=== PATIENT | male | born 1940 | race Caucasian/White ===

== ENCOUNTER 2020-12-03 09:23 | Inpatient (IN) | payer MEDICARE, OTHER ==
[~2020-12-03] VITALS: Ht 177.8 cm; Wt 102.2 kg
--- OUTSIDE RECORDS SUMMARY | 2020-12-03 09:30 | XMS REPORT | Clinical Summary ---
Author Author [facility] Organization [facility] Address Unknown Phone Unavailable Care Team Providers Care Rail Doweling Machine Operator Name Role Phone Dipika Fuentes HUMAN RESOURCES BENEFITS MANAGER PCP Source Comments Some departments are not documenting in the electronic medical record. If you d o not see the information that you expected, contact Release of Information in [facility] [email or web address] Information Management department at [phone] for further assistan ce in locating additional records.[facility] Allergies Comments Active Allergy Reactions Severity Noted Date Bismuth Subsalicylate HIVES, RASH High 08/15/19 13 Medications End Date Status Medication Sig Dispensed Refills Start Date Active metFORMIN (GLUCOPHAGE) Take 1,000 mg 0 02 1,000 mg tablet by mouth 1 twice daily. Active glimepiride (AMARYL) 4 mg Take 4 mg by 0 06/18 tablet mouth twice 1 daily. 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 Encounters Care Team Description Date Type Specialty Jason Larios MD Melanoma in situ of ear, left (HCC) (Lizzie viviana Dx) 09/03/2020 Office Visit Plastic Surgery 09/03/2020 Travel from Last 3 Months Surgical History Surgery Date Site/Laterality Comments ABDOMEN SURGERY OSTOMY TISSUE TRANSFER 08/19/2020 Left ADJACENT TISSU E TRANSFER PEDICLE FLAP DEFECT 10 SQ CM OR LESS - EYELID/ EAR/ NOSE/ LIP per formed by Jason Larios MD at [facility] OR MALIGNANT SKIN LESION 08/19/2020 Left EXCISION LESION MALIGNANT 2.1 CM - 3.0 CM - FACE/ EXCISION EAR performed by Kati Larios MD at [facility] OR Medical History Medical History Date Comments DM (diabetes mellitus) (HCC) Hypertension Social History Date Tobacco Use Types Packs/Day Years Used Never Smoker Smokeless Tobacco: Former User Sex Assigned at Date Recorded Not on file Last Filed Vital Signs Reading Time Taken Comments Vital Sign 140/76 09/03/2020 10:26 AM CDT Blood Pressure 79 09/03/2020 10:26 AM CDT Pulse 36.4 C (97.6 F) 08/19/2020 11:28 AM CDT Temperature - - Respiratory Rate 97% 08/19/2020 11:28 AM CDT Oxygen Saturation - - Inhaled Oxygen Concentration 95.3 kg (210 lb) 09/03/2020 10:26 AM CDT Weight 177.8 cm (5' 10") 09/03/2020 10:26 AM CDT Height 30.13 09/03/2020 10:26 AM CDT Body Mass Index Plan of Treatment Health Maintenance Due Date Last Done Comments MEDICARE ANNUAL WELLNESS 1940 VISIT DTAP/TDAP VACCINES (1 - 10/13/1959 Tdap) HEPATITIS C SCREENING 10/13/1959 PHYSICAL (COMPREHENSIVE) 10/13/1959 EXAM SHINGLES RECOMBINANT 10/13/1991 VACCINE (1 of 2) PNEUMONIA (PPSV23) 2006 VACCINE (1 of 1 - PPSV23) INFLUENZA VACCINE 12/17/2020 Results Not on filefrom Last 3 Months Insurance Type Payer Benefit Subscriber ID Effective Phone Address Plan / Dates Group Medicare AETNA MEDICARE AETNA [id number] 2019-P MEDICARE resent PPO [phone] Advance Directives Patient Translation Director Explanation Type Date Recorded Advance Directive/DPOA
[2020-12-03 10:02] LABS: WHITE BLOOD COUNT 3.1 10^3/uL (4.3-11.0)
[2020-12-03 10:03] LABS: BASOPHILS % (AUTO) 0 % (0-10); EOSINOPHILS % (AUTO) 0 % (0-10); HEMATOCRIT 37 % (40-54); HEMOGLOBIN 12.5 g/dL (13.3-17.7); LYMPHOCYTES # (AUTO) 0.5 X 10^3 (1.0-4.0); LYMPHOCYTES % (AUTO) 18 % (12-44); MEAN CORPUSCULAR HEMOGLOBIN 29 pg (25-34); MEAN CORPUSCULAR HGB CONC 35 g/dL (32-36); MEAN CORPUSCULAR VOLUME 86 fL (80-99); MEAN PLATELET VOLUME 10.6 fL (9.0-12.2); MONOCYTES # (AUTO) 0.1 X 10^3 (0.0-1.0); MONOCYTES % (AUTO) 4 % (0-12); NEUTROPHILS # (AUTO) 2.4 X 10^3 (1.8-7.8); NEUTROPHILS % (AUTO) 78 % (42-75); PLATELET COUNT 107 10^3/uL (130-400)
[2020-12-03] MEDS ORDERED: NS IV 1000 ML 1,000 ML IV STA (10:05)
[2020-12-03] MEDS ORDERED: ONDANSETRON 4 MG/2 ML (SDV) Z0FRAN IVP STA (10:05)
--- NOTE | 2020-12-03 10:21 | ED General ---
General Chief Complaint: COVID19 Suspect/Confirmed Stated Complaint: AMS; COVID+; LOW O2 Source of Information: Patient (CHUY GUERRERO MD) History of Present Illness Date Seen by Provider: Dec 03, 2020 Time Seen by Provider: 09:26 Initial Comments 80-year-old male presenting to the ED with altered mental status and confusion. He had a low oxygen saturation in the 70s. He reports having been sick for several days with cough and cold symptoms but then yesterday he had a Covid test that came back positive. His has had some similar symptoms at home as well. He has had some intermittent fever and chills. He has had nausea and decreased appetite but no vomiting. He has had some diarrhea 1-2 loose stools a day. He denies any pain with urination. This morning he was getting dizzy and lightheaded with standing and changing positions. He is diabetic and takes oral pills as well as recently started on Levemir. He follows with Lizet Fuentes from [place]. He has been more fatigued and sleeping more since yesterday. He has been coughing but usually not bringing up anything. He has some chest wall pain from cough. His son told the nursing staff that he has been sick for about a week. Associated Systoms: Chest Pain (chest wall pain from coughing), Cough; No Diaphoresis; Fever/Chills (intermittent), Headaches, Loss of Appetite, Malaise, Nausea/Vomiting (nausea but no vomiting); No Rash, No Seizure; Shortness of Air; No Syncope; Weakness (general) (CHUY GUERRERO MD) Allergies and Home Medications Allergies Coded Allergies: bismuth subsalicylate (Verified Allergy, Unknown, Hives, 12/03/20) Patient Home Medication List Home Medication List Reviewed: Yes (CHUY GUERRERO MD) Review of Systems Review of Systems Constitutional: see HPI EENTM: nose congestion Respiratory: see HPI; No hemoptysis, No stridor, No wheezing Cardiovascular: see HPI Gastrointestinal: see HPI; No abdominal pain; diarrhea (1-2 loose stools a day), loss of appetite, nausea; No vomiting Genitourinary: decreased output; No dysuria Musculoskeletal: other (generalized body aches) Skin: no symptoms reported Psychiatric/Neurological: See HPI, Headache, Weakness (general) (CHUY GUERRERO MD) Past Vskkhcf-Bztpgy-Earvuq Hx Past Medical History Surgery/Hospitalization HX: Diabetes Surgeries: Yes Ear Surgery (melanoma removal) Respiratory: No Cardiac: No Neurological: No Genitourinary: No Gastrointestinal: No Musculoskeletal: No Diabetes, Insulin dep Cancer: Yes Melanoma Psychosocial: No (CHUY GUERRERO MD) Physical Exam Vital Signs Vital Signs - First Documented 12/03/20 09:30 Temp 37.5 Pulse 54 Resp 35 B/P (MAP) 124/63 (83) Pulse Ox 93 O2 Delivery OxyMask O2 Flow Rate 15.00 (PHILIPPE CASTILLO MD) Vital Signs Capillary Refill : (CHUY GUERRERO MD) Height, Weight, BMI Height: '" Weight: lbs. oz. kg; BMI Method: General Appearance: Mild Distress, Other (initially more confused and having difficulty answering questions, but improved as he was on supplemental oxygen.) HEENT: PERRL/EOMI; No Moist Mucous Membranes (slightly dry mucous membranes) Neck: Full Range of Motion, Normal Inspection, Non Tender, Supple Respiratory: No Accessory Muscle Use, Decreased Breath Sounds, Respiratory Distress (increased work of breathing and tachypnea), Rhonci (throughout, improved with cough), Other (tender to chest wall) Cardiovascular: Regular Rate, Rhythm, Normal Peripheral Pulses Gastrointestinal: Normal Bowel Sounds, No Pulsatile Mass, Non Tender, Soft Rectal: Deferred Back: No CVA Tenderness, No Vertebral Tenderness Extremity: Normal Capillary Refill, Normal Inspection, No Pedal Edema Neurologic/Psychiatric: Alert, Oriented x3 (initially confused on arrival but after being on supplemental oxygen answered questions appropriately), No Motor/Sensory Deficits, clerk typist II-XII Norm as Tested Skin: Normal Color, Warm/Dry (CHUY GUERRERO MD) Focused Exam Lactate Level 12/03/20 09:45: Lactic Acid Level 1.42 (PHILIPPE CASTILLO MD) Lactic Acid Level Laboratory Tests Test 12/03/20 09:45 Lactic Acid Level 1.42 MMOL/L (0.50-2.00) (PHILIPPE CASTILLO MD) Progress/Results/Core Measures Suspected Sepsis SIRS Temperature: Pulse: Respiratory Rate: Laboratory Tests 12/03/20 09:45: White Blood Count 3.1L Blood Pressure / Mean: 12/03/20 09:45: Lactic Acid Level 1.42 Laboratory Tests 12/03/20 09:45: Creatinine 0.99, INR Comment 1.0, Platelet Count 107L, Total Bilirubin 0.8 (CHUY GUERRERO MD) Results/Orders Lab Results Laboratory Tests Test 12/03/20 09:45 12/03/20 10:15 12/03/20 12:35 Range/Units White Blood Count 3.1 L 4.3-11.0 10^3/uL Red Blood Count 4.26 L 4.30-5.52 10^6/uL Hemoglobin 12.5 L 13.3-17.7 g/dL Hematocrit 37 L 40-54 % Mean Corpuscular Volume 86 80-99 fL Mean Corpuscular Hemoglobin 29 25-34 pg Mean Corpuscular Hemoglobin Concent 35 32-36 g/dL Red Cell Distribution Width 14.6 H 10.0-14.5 % Platelet Count 107 L 130-400 10^3/uL Mean Platelet Volume 10.6 9.0-12.2 fL Immature Granulocyte % (Auto) 1 % Neutrophils (%) (Auto) 78 H 42-75 % Lymphocytes (%) (Auto) 18 12-44 % Monocytes (%) (Auto) 4 0-12 % Eosinophils (%) (Auto) 0 0-10 % Basophils (%) (Auto) 0 0-10 % Neutrophils # (Auto) 2.4 1.8-7.8 X 10^3 Lymphocytes # (Auto) 0.5 L 1.0-4.0 X 10^3 Monocytes # (Auto) 0.1 0.0-1.0 X 10^3 Eosinophils # (Auto) 0.0 0.0-0.3 10^3/uL Basophils # (Auto) 0.0 0.0-0.1 10^3/uL Immature Granulocyte # (Auto) 0.0 0.0-0.1 10^3/uL Neutrophils % (Manual) 69 % Lymphocytes % (Manual) 12 % Monocytes % (Manual) 3 % Eosinophils % (Manual) 0 % Basophils % (Manual) 0 % Metamyelocytes % 1 % Myelocytes % 1 % Band Neutrophils 14 % Percent Immature Platelet Fraction 4.2 0.0-7.6 % Prothrombin Time 13.2 12.2-14.7 SEC INR Comment 1.0 0.8-1.4 Activated Partial Thromboplast Time 34 24-35 SEC D-Dimer 1.25 H 0.00-0.49 UG/ML Sodium Level 130 L 135-145 MMOL/L Potassium Level 4.2 3.6-5.0 MMOL/L Chloride Level 97 L 98-107 MMOL/L Carbon Dioxide Level 23 21-32 MMOL/L Anion Gap 10 5-14 MMOL/L Blood Urea Nitrogen 20 H 7-18 MG/DL Creatinine 0.99 0.60-1.30 MG/DL Estimat Glomerular Filtration Rate 73 BUN/Creatinine Ratio 20 Glucose Level 174 H 70-105 MG/DL Lactic Acid Level 1.42 0.50-2.00 MMOL/L Calcium Level 8.4 L 8.5-10.1 MG/DL Corrected Calcium 8.7 8.5-10.1 MG/DL Total Bilirubin 0.8 0.1-1.0 MG/DL Aspartate Amino Transf (AST/SGOT) 45 H 5-34 U/L Alanine Aminotransferase (ALT/SGPT) 22 0-55 U/L Alkaline Phosphatase 47 40-136 U/L Troponin I < 0.30 <0.30 NG/ML C-Reactive Protein 17.50 H <0.50 MG/DL Pro-B-Type Natriuretic Peptide 87.0 H <75.0 PG/ML Total Protein 7.1 6.4-8.2 GM/DL Albumin 3.6 3.2-4.5 GM/DL Lipase 42 8-78 U/L Blood Gas Puncture Site RT RADIAL Blood Gas Patient Temperature 37.5 Arterial Blood pH 7.44 H 7.37-7.43 Arterial Blood Partial Pressure CO2 36 35-45 MMHG Arterial Blood Partial Pressure O2 89 79-93 MMHG Arterial Blood HCO3 25 23-27 MMOL/L Arterial Blood Total CO2 25.6 21.0-31.0 MMOL/L Arterial Blood Oxygen Saturation 97 94-100 % Arterial Blood Base Excess 0.6 -2.5-2.5 MMOL/L Juan F Test OK Blood Gas Ventilator Setting NO Blood Gas Inspired Oxygen 15 L Urine Color YELLOW Urine Clarity SLT CLOUDY Urine pH 5.5 5-9 Urine Specific [place] <=1.005 1.016-1.022 Urine Protein TRACE H NEGATIVE Urine Glucose (UA) NEGATIVE NEGATIVE Urine Ketones 2+ H NEGATIVE Urine Nitrite NEGATIVE NEGATIVE Urine Bilirubin NEGATIVE NEGATIVE Urine Urobilinogen 0.2 < = 1.0 MG/DL Urine Leukocyte Esterase NEGATIVE NEGATIVE Urine RBC (Auto) TRACE H NEGATIVE Urine RBC NONE /HPF Urine WBC 0-2 /HPF Urine Squamous Epithelial Cells 0-2 /HPF Urine Crystals NONE /LPF Urine Bacteria NEGATIVE /HPF Urine Casts NONE /LPF Urine Mucus NEGATIVE /LPF Urine Culture Indicated NO (PHILIPPE CASTILLO MD) Medications Given in ED Current Medications Medications Dose Ordered Sig/Janell Route Start Time Stop Time Status Last Admin Dose Admin Iohexol 100 ml ONCE ONCE IV 12/03/20 11:15 12/03/20 11:16 DC 12/03/20 11:30 100 ML Sodium Chloride 10 ml NEEDED PRN IV 12/03/20 11:15 12/03/20 11:30 10 ML Sodium Chloride 100 ml ONCE ONCE IV 12/03/20 11:15 12/03/20 11:16 DC 12/03/20 11:30 100 ML (PHILIPPE CASTILLO MD) Vital Signs/I&O 12/03/20 09:30 Temp 37.5 Pulse 54 Resp 35 B/P (MAP) 124/63 (83) Pulse Ox 93 O2 Delivery OxyMask O2 Flow Rate 15.00 (PHILIPPE CASTILLO MD) Vital Signs/I&O Capillary Refill : (CHUY GUERRERO MD) Progress Note #1: Progress Note With his hypoxia on arrival and diagnosis of Covid patient will need admission to continue treatment and help stabilize his breathing. After being placed on the Oxy-mask he is saturating 93-97% and his mentation improved. Will check CXR, ABG, Labs, Blood cultures with lactic acid, UA, ECG. Give IVF for hydation, Zofran for nausea, Decadron for headache and shortness of breath. Progress Note #2: Time: 10:46 Progress Note pt able to be weaned down to high flow nasal cannula and still maintain O2 sats 97%. ABG on the 15 Liters looked ok, but he had been on it already for 20-30 minutes before obtaining sample. pH was 7.44, pCO2 of 36, pO2 89. Lactic acid not elevated. CBC with slightly low WBC count 3.1 and slightly low platelets at 107. he has a left shift with 78% neutrophils. Chemistry shows slightly low sodium at 130, Glucose slightly elevated at 174, CRP elevated to 17.5. Negative Troponin. BUN slightly high at 20. Coags normal but D Dimer elevated to 1.[address] angiogram to ensure he does not have a PE. Give Albuterol inhaler with spacer 2 puffs every 4 hours Progress Note #3: Time: 11:28 Progress Note D/w Dr. Gipson substation operator apprentice for Hospitalist service since patient's primary provider is in [place] and works with [facility] system of healthcare. Pt is waiting on CT results still but everything else is back and working on weaning O2 with his High flow nasal cannula down from the 15 Lpm. He accepted him for admit but would like him on Cardiac Step Down or ICU so he could be watched more closely as concerned pt may worsen in his course. 1130 notified Mar RN, Nursing tool room supervisor of need for ICU or Cardiac Step down bed for pt to be admitted to Hospitalist service with Dr. Gipson. She advised she had no beds at that time and would have to see about moving some patient's and see about getting bed for him. Asked her to call back as soon as she knew a bed assignment for pt so he could be transported to [place] as I will have orders ready for the patient. Progress Note #4: Time: 11:54 Progress Note Pt was able to be weaned down to 11 Lpm O2 on the high flow [place]. to keep sats above 90%. Will continue to monitor and await CT angiogram results and awaiting bed placement from [facility]. Progress Note #5: Progress Note Advised at 1225 that [facility] was waiting on discharge but would have a bed for the patient to go to Cardiac Step Down, but it may be after 4 pm. Family wanted to try [place] as a family member works there. [address] Manning for the [facility] is she advised that she would have to decline as the patient felt like he needed more care than she could provide at [place]. D/w ED director for suggestions and he recommended sending the patient to ED in [place] to wait for the bed as they have more services available such as RT. D/w Dr. Castillo, the doctor working in ED currently. She was updated about the patient and informed of his need for 15 Lpm oxygen and risk for worsening medical condition. While he currently is stable within the limits of my capability has a stand-alone ED with no additional resources, he has a bed waiting for him to be placed in at [place] and there would be more resources available to him if he started to worsen in his condition if he was in the ED at [facility]. Nursing Patient Registration Representative FABIAN Manuel, also made aware pt would be waiting in ED in [place] for bed placement and she stated she was waiting on discharge from Cardiac Step Down to place him there. Family requesting [facility] for admit so at 1300 call placed to FABIAN Calvert, transfer nurse for [facility] and she advised they had no beds available for transfer. Will work on proceeding with transfer to [facility] where pt was accepted at 1128. 1315 when getting up to the side of the bed to use the urinal he did have an oxygen desaturation had to be increased again to 15 Lpm for his saturations to be over 90% (CHUY GUERRERO MD) Progress Note : Time: 15:24 Progress Note Patient reevaluated upon arrival to the emergency department from [place]. Complains of some difficulty with shortness of breath and a dry nonproductive cough. States that he feels generally "not good". Denies actual chest pain or abdominal pain. Has had decreased appetite. Is a little bit thirsty and requesting some ice water. Denies leg swelling or cramping. No severe headache. No sore throat. Is not currently nauseated. Noted to be on 10 to 12 L per nasal cannula satting 91 to 93%. No respiratory distress but is a little tachypneic. Awaiting ICU/stepdown bed 1551 Had discussion with the pharmacist regarding the use of Actemra for treatment of Covid. Went in and talked to the patient about this medication including the fact that it is under emergency use authorization for treatment of COVID-19. I discussed with him that it potentially will decrease his overall mortality related to the disease as well as decreasing his risk for the need for intubation. I advised him of the side effects which include blunting of his immune response, increasing his risk for secondary infections, changes in blood counts and rarely a worsening of hepatic function. Patient is interested in receiving this medication and verbalizes understanding of the emergency use authorization as well as the potential side effects. He is agreeable to this medication. I also then discussed this medication with Dr. Gipson who is admitting this patient. He is agreeable with the Actemra infusion. (PHILIPPE CASTILLO MD) ECG Initial ECG Impression Date: Dec 03, 2020 Initial ECG Impression Time: 10:19 Initial ECG Rate: 67 Initial ECG Rhythm: Normal Sinus Initial ECG Comparisson: No Previous ECG Available Comment Normal sinus rhythm with a heart rate of 67 bpm. LA interval [address] elevation. QT interval 364 ms with a QTc interval 385 ms. There is no prior tracing available for comparison. (CHUY GUERRERO MD) Diagnostic Imaging Diagonstic Imaging: Xray Plain Films/CT/US/NM/MRI: chest Comments NAME: ESAU THOMAS [employer] [facility] REC#: [id number] PT STATUS: REG ER : 1940 PHYSICIAN: CHUY GUERRERO MD ADMIT DATE: 12/03/20/ER FS Draft Date of Exam:12/03/20 CHEST 1 VIEW AP/PA ONLY INDICATION: COVID 19 positive and hypoxia. TIME OF EXAM: 10:05 AM No prior studies available for comparison. Heart size normal. There are peripheral patchy infiltrates throughout bilateral upper and lower lobes consistent with pneumonia. No effusion or pneumothorax is seen. IMPRESSION: Peripheral patchy airspace infiltrates bilateral upper lower lobes suggestive of COVID 19 pneumonia. Dictated on workstation # [id number] Dict: 12/03/20 1023 Trans: 12/03/20 1024 CV [id number] Interpreted by: MARYANN BAGLEY MD Electronically signed by: Reviewed: Reviewed by Me Diagonstic Imaging: CT (Angiogram) Plain Films/CT/US/NM/MRI: chest Comments [facility] [place] NAME: ESAU THOMAS [facility] REC#: [id number] PT STATUS: REG ER : 1940 PHYSICIAN: CHUY GUERRERO MD ADMIT DATE: 12/03/20/ER FS Draft Date of Exam:12/03/20 CT ANGIO CHEST W PROCEDURE: CT angiography of the chest with contrast. TECHNIQUE: Multiple contiguous axial images were obtained through the chest after uneventful bolus administration of intravenous contrast. 3D reconstructed CTA MIP acquisitions were also performed. Auto Exposure Controls were utilized during the CT exam to meet ALARA standards for radiation dose reduction. INDICATION: COVID-19 positive with hypoxia and shortness of breath and elevated D-dimer. COMPARISON: No prior studies are available for comparison. FINDINGS: Evaluation of the pulmonary arterial system is without evidence of thromboembolism. No filling defects are seen within central, lobar, or segmental branches. The thoracic aorta is normal in caliber. No dissection is seen. There is no pericardial effusion. There is trace left pleural effusion. Pulmonary parenchymal evaluation demonstrates extensive ground-glass infiltrates throughout bilateral upper and lower lobes. Upper abdomen is unremarkable. IMPRESSION: 1. No evidence of pulmonary embolism or thoracic aortic dissection. 2. Extensive five-lobe ground-glass infiltrates consistent with COVID-19 pneumonia. Dictated on workstation # [id number] Dict: 12/03/20 1141 Trans: 12/03/20 1147 [id number] Interpreted by: MARYANN BAGLEY MD Electronically signed by: Reviewed: Reviewed by Me (CHUY GUERRERO MD) Departure Communication (Admissions) Time/Spoke to Admitting Phy: 11:28 d/w Dr. Gipson for Hospitalist service and he accepted pt for admit but would like him in Cardiac Step Down or ICU to be watched more closely as patient may worsen. (CHUY GUERRERO MD) Impression Primary Impression: Acute hypoxemic respiratory failure due to severe acute respiratory syndrome coronavirus 2 (SARS-CoV-2) disease Additional Impression: Elevated d-dimer Disposition: 30 STILL A PATIENT Condition: Stable Admissions Decision to Admit Reason: Admit from ER (General) Decision to Admit/Date: Dec 03, 2020 Time/Decision to Admit Time: 11:28 (CHUY GUERRERO MD) Departure-Patient Inst. Referrals: LIZET FUENTES APRN (PCP) Primary Care Physician [facility] (Family) Primary Care Physician CHUY GUERRERO MD Dec 03, 2020 10:21 PHILIPPE CASTILLO MD Dec 03, 2020 15:25
--- NOTE | 2020-12-03 10:25 | Diagnostic Imaging Report ---
INDICATION: COVID 19 positive and hypoxia. TIME OF EXAM: 10:05 AM No prior studies available for comparison. Heart size normal. There are peripheral patchy infiltrates throughout bilateral upper and lower lobes consistent with pneumonia. No effusion or pneumothorax is seen. IMPRESSION: Peripheral patchy airspace infiltrates bilateral upper lower lobes suggestive of COVID 19 pneumonia. Dictated by: Dictated on workstation # [id number]
[2020-12-03 10:30] LABS: PROTHROMBIN TIME PATIENT 13.2 SEC (12.2-14.7)
[2020-12-03 10:34] LABS: ABG BASE EXCESS 0.6 MMOL/L (-2.5-2.5); ABG OXYGEN SATURATION 97 % (94-100); ABG PCO2 36 MMHG (35-45); ABG PH 7.44 (7.37-7.43); ABG PO2 89 MMHG (79-93); ABG TCO2 25.6 MMOL/L (21.0-31.0)
[2020-12-03 10:35] LABS: ALLENS TEST OK; INSPIRED O2 15 L; PATIENT TEMP 37.5; VENTILATOR NO
[2020-12-03 10:38] LABS: BILIRUBIN,TOTAL 0.8 MG/DL (0.1-1.0); BUN/CREATININE RATIO 20; CALCIUM 8.4 MG/DL (8.5-10.1); CARBON DIOXIDE 23 MMOL/L (21-32); CHLORIDE 97 MMOL/L (98-107); CREATININE SERUM 0.99 MG/DL (0.60-1.30); GFR ESTIMATED 73; GLUCOSE 174 MG/DL (70-105); POTASSIUM 4.2 MMOL/L (3.6-5.0); SODIUM 130 MMOL/L (135-145)
[2020-12-03 10:39] LABS: ALANINE AMINOTRANSFERASE 22 U/L (0-55); ALBUMIN 3.6 GM/DL (3.2-4.5); ALKALINE PHOSPHATASE 47 U/L (40-136); TOTAL PROTEIN 7.1 GM/DL (6.4-8.2)
[2020-12-03] MEDS ORDERED: RT-ALBUTEROL HFA 8.5 GM INHALER IH STA (10:52)
[2020-12-03 10:58] LABS: BAND NEUTROPHILS 14 %; BASOPHILS % (MANUAL) 0 %; EOSINOPHILS % (MANUAL) 0 %; LYMPHOCYTES % (MANUAL) 12 %; METAMYELOCYTES % 1 %; MONOCYTES % (MANUAL) 3 %; MYELOCYTES % 1 %; NEUTROPHILS % (MANUAL) 69 %
[2020-12-03] MEDS ORDERED: IOHEXOL 350 MG/ML 100 ML (OMNIPAQUE 350) VIAL IV ONE (11:15)
[2020-12-03] MEDS ORDERED: NS 100 ML (IVPB) BAG IV ONE (11:15)
[2020-12-03] MEDS ORDERED: CATHETER FLUSH 10 ML SYR IV PRN ×2 (11:15→17:15)
[2020-12-03] MEDS ORDERED: HOLD METFORMIN - RECEIVED CONTRAST 20 ML VIAL IV SCH (11:15)
[2020-12-03] MEDS ORDERED: LACTATED RINGERS 1,000 ML IV STA (11:46)
--- NOTE | 2020-12-03 11:47 | Diagnostic Imaging Report ---
PROCEDURE: CT angiography of the chest with contrast. TECHNIQUE: Multiple contiguous axial images were obtained through the chest after uneventful bolus administration of intravenous contrast. 3D reconstructed CTA MIP acquisitions were also performed. Auto Exposure Controls were utilized during the CT exam to meet ALARA standards for radiation dose reduction. INDICATION: COVID-19 positive with hypoxia and shortness of breath and elevated D-dimer. COMPARISON: No prior studies are available for comparison. FINDINGS: Evaluation of the pulmonary arterial system is without evidence of thromboembolism. No filling defects are seen within central, lobar, or segmental branches. The thoracic aorta is normal in caliber. No dissection is seen. There is no pericardial effusion. There is trace left pleural effusion. Pulmonary parenchymal evaluation demonstrates extensive ground-glass infiltrates throughout bilateral upper and lower lobes. Upper abdomen is unremarkable. IMPRESSION: 1. No evidence of pulmonary embolism or thoracic aortic dissection. 2. Extensive five-lobe ground-glass infiltrates consistent with COVID-19 pneumonia. Dictated by: Dictated on workstation # [id number]
[2020-12-03 12:53] LABS: BILIRUBIN,URINE NEGATIVE (NEGATIVE); CLARITY,URINE SLT CLOUDY; COLOR,URINE YELLOW; GLUCOSE, URINE (UA) NEGATIVE (NEGATIVE); KETONES,URINE 2+ (NEGATIVE); LEUKOCYTE ESTERASE ,URINE NEGATIVE (NEGATIVE); NITRITE,URINE NEGATIVE (NEGATIVE); PH,URINE 5.5 (5-9); PROTEIN,URINE TRACE (NEGATIVE)
[2020-12-03 12:54] LABS: BACTERIA,URINE NEGATIVE /HPF; SQUAMOUS EPITHELIAL CELL,UR 0-2 /HPF; WBC,URINE 0-2 /HPF
[2020-12-03] MEDS ORDERED: TOCILIZUMAB INJECTION (NON-FOR 600 MG in NS (IVPB) 70 ML IV ONE (16:00)
[2020-12-03 16:58] VITALS: BP 124/56
[2020-12-03] MEDS ORDERED: RT-ALBUTEROL HFA 8.5 GM INHALER IH PRN (17:15)
[2020-12-03] MEDS: LACTATED RINGERS 1,000 ML IV SCH (17:21)
[2020-12-03 17:26] VITALS: BP 122/67
[2020-12-03] MEDS ORDERED: guaiFENesin SYRUP 100 MG/5 ML 10 ML (ROBITUSSIN SF) PO PRN (17:30)
[2020-12-03] MEDS ORDERED: ACETAMINOPHEN 325 MG TABLET PO PRN (17:30)
[2020-12-03] MEDS: ENOXAPARIN 40 MG/0.4 ML (LOVENOX) SYR SC SCH (17:49)
[2020-12-03] MEDS: guaiFENesin/DM (ROBITUSSIN DM) 10 ML UDC PO PRN (17:51)
--- NOTE | 2020-12-03 17:52 | History & Physical-Hospitalist ---
History of Present Illness HPI/Chief Complaint Pravin Obrien Jr is a 80-year-old male with past medical history of hypertension, type 2 diabetes mellitus, who presented with shortness of breath. He was diagnosed with Covid yesterday. He is unvaccinated. He reports that he thought he was immune to it. He reports that he has been sick for nearly 2 weeks. He came in because of shortness of breath. He is also had a very bad cough. He has not had a very good appetite and things have not smelled or tasted right. He denies chest pain. He denies fevers and chills. He denies nausea and vomiting. He denies abdominal pain and diarrhea. He did see a doctor but was not prescribed any medications. He has been taking Advil and Sudafed. Source: patient Exam Limitations: no limitations Date Seen 12/03/20 Time Seen by a Provider: 17:30 Attending Physician Mirella Tinajero MD PCP Dipika Fuentes Aprn Referring Physician Date of Admission Dec 03, 2020 at 11:42 Home Medications & Allergies Home Medications Reviewed patient Home Medication Reconciliation performed by pharmacy medication reconciliations senior wind turbine technician and/or nursing. Patients Allergies have been reviewed. Allergies Allergies Coded Allergies bismuth subsalicylate (Verified Allergy, Unknown, Hives, 12/03/20) Past [id number]-[id number]-Lykrsw Hx Patient Social History Tobacco Use?: No Substance use?: No Alcohol Use?: No Pt feels they are or have been: No Current Status Advance Directives: No Communicates: Verbally Primary Language: Indonesian Preferred Spoken Language: Indonesian Past Medical History Surgeries: Ear Surgery (melanoma removal) Hypertension Diabetes, Insulin dep Melanoma Review of Systems Constitutional: dizziness, malaise, weakness EENTM: no symptoms reported Respiratory: cough, short of breath Cardiovascular: no symptoms reported Gastrointestinal: no symptoms reported Genitourinary: no symptoms reported Musculoskeletal: no symptoms reported Skin: no symptoms reported Psychiatric/Neurological: No Symptoms Reported Physical Exam Physical Exam Vital Signs Vital Signs - First Documented 12/03/20 12/03/20 09:30 16:58 Temp 37.5 Pulse 54 Resp 35 B/P (MAP) 124/63 (83) Pulse Ox 93 O2 Delivery OxyMask O2 Flow Rate 15.00 FiO2 100 Capillary Refill : Less Than 3 Seconds Height, Weight, BMI Height: '" Weight: lbs. oz. kg; 28.00 BMI Method: General Appearance: WD/WN, Mild Distress (Severe cough, tachypnea) HEENT: PERRL/EOMI, Pharynx Normal Neck: Normal Inspection, Supple Respiratory: Lungs Clear, Normal Breath Sounds, No Respiratory Distress Cardiovascular: No Edema, No Murmur, Bradycardia Gastrointestinal: Normal Bowel Sounds, Non Tender, Soft Extremity: Normal Inspection, Non Tender, No Pedal Edema Neurologic/Psychiatric: Alert, Oriented x3, No Motor/Sensory Deficits, Normal Mood/Affect Skin: Normal Color, Warm/Dry Results Results/Procedures Labs Laboratory Tests 12/03/20 09:45 Patient resulted labs reviewed. Imaging: Reviewed Imaging Report Assessment/Plan Admission Diagnosis Acute respiratory failure due to COVID-19 Admission Status: Inpatient Order (span 2 midnights) Reason for Inpatient Admission: Respiratory failure Assessment and Plan Acute respiratory failure due to COVID-19 Lymphopenia associated with COVID-19 Elevated D-dimer COVID+ outside facility 12/02 Chest imaging with diffuse infiltrates D-dimer mildly elevated CT negative for pulmonary embolism Prophylactic Lovenox Started on Decadron Giving Actemra, ER discussed risk/benefits/EUA use and patient agreed Requiring Vapotherm Incentive spirometry Proning as tolerated MAT protocol Bradycardia Initial EKG unremarkable Heart rate dropping into the 40s occasionally on telemetry Repeat EKG if bradycardia returns Consult cardiology if persistent Hypertension Hold home meds Currently normotensive Type 2 diabetes mellitus Steroid-induced hyperglycemia Levemir 20 units nightly Sliding scale insulin DVT prophylaxis: Lovenox Diagnosis/Problems Diagnosis/Problems (1) Acute respiratory failure due to COVID-19 Status: Acute (2) Lymphopenia associated with COVID-19 Status: Acute (3) Hypertension Status: Chronic (4) Type 2 diabetes mellitus Status: Chronic (5) Bradycardia Status: Acute (6) Elevated d-dimer Status: Acute (7) Steroid-induced hyperglycemia MIRELLA TINAJERO MD Dec 03, 2020 17:52
[2020-12-03] MEDS: RT-ALBUTEROL HFA 8.5 GM INHALER IH SCH ×2 (18:55→22:54)
[2020-12-03 20:00] VITALS: BP 120/55
[2020-12-03] MEDS: inSUlin ASPART (NovoLOG) 1 UNIT/0.01 ML (CHARGE PER UNIT) SC SCH (21:24)
[2020-12-04] VITALS (13 sets, daily range): BP systolic 103–129; BP diastolic 43–69
[2020-12-04] MEDS: RT-ALBUTEROL HFA 8.5 GM INHALER IH SCH ×6 (02:26→21:31)
[2020-12-04 05:32] LABS: BASOPHILS % (AUTO) 0 % (0-10); EOSINOPHILS % (AUTO) 0 % (0-10); MEAN CORPUSCULAR VOLUME 87 fL (80-99); MONOCYTES # (AUTO) 0.1 10^3/uL (0.0-1.0)
[2020-12-04 05:34] LABS: HEMATOCRIT 33 % (40-54); HEMOGLOBIN 11.2 g/dL (13.3-17.7); LYMPHOCYTES # (AUTO) 0.3 10^3/uL (1.0-4.0); LYMPHOCYTES % (AUTO) 13 % (12-44); MEAN CORPUSCULAR HEMOGLOBIN 29 pg (25-34); MEAN CORPUSCULAR HGB CONC 34 g/dL (32-36); MEAN PLATELET VOLUME 11.1 fL (9.0-12.2); MONOCYTES % (AUTO) 5 % (0-12); NEUTROPHILS % (AUTO) 81 % (42-75); PLATELET COUNT 104 10^3/uL (130-400); WHITE BLOOD COUNT 2.5 10^3/uL (4.3-11.0)
[2020-12-04 05:52] LABS: ALBUMIN 3.1 GM/DL (3.2-4.5); POTASSIUM 4.6 MMOL/L (3.6-5.0)
[2020-12-04 05:53] LABS: CALCIUM 8.3 MG/DL (8.5-10.1)
[2020-12-04 05:54] LABS: TOTAL PROTEIN 6.2 GM/DL (6.4-8.2)
[2020-12-04 05:56] LABS: BILIRUBIN,TOTAL 0.6 MG/DL (0.1-1.0)
[2020-12-04 05:58] LABS: CREATININE SERUM 1.16 MG/DL (0.60-1.30)
[2020-12-04] MEDS: inSUlin ASPART (NovoLOG) 1 UNIT/0.01 ML (CHARGE PER UNIT) SC SCH ×4 (06:00→20:12)
[2020-12-04] MEDS: LACTATED RINGERS 1,000 ML IV SCH ×2 (06:00→18:07)
[2020-12-04] MEDS: guaiFENesin/DM (ROBITUSSIN DM) 10 ML UDC PO PRN (08:22)
[2020-12-04] MEDS: dexAMETHasone 6 MG TAB (DECADRON) PO SCH (08:22)
[2020-12-04] MEDS ORDERED: LIDOCAINE 1% INJ 20 ML 20 ML VIAL ONE (08:29)
[2020-12-04] MEDS ORDERED: HEParin (CATH LAB) 0 ML IV ONE (08:29)
[2020-12-04] MEDS ORDERED: NS IV 1000 ML 0 ML ONE (08:29)
--- NOTE | 2020-12-04 09:57 | Consultation-Cardiology ---
HPI-Cardiology Cardiology Consultation Date of Consultation 12/04/20 Date of Admission Time Seen by Provider: 09:52 Indication: Bradycardia HPI 80-year-old gentleman with history of diabetes mellitus, hypertension and loss of hearing. Patient admitted for worsening shortness of breath and cough, diaphoresis and chills. He was diagnosed with COVID-19 pneumonia. Appeared to be in acute respiratory failure, currently on Vapotherm, still having shortness of breath and cough. Noted overnight to have episodes of sinus bradycardia with heart rate in the 30s. He denied any syncope. No chest pain. No previous cardiac history. Home Medications & Allergies Allergies: Coded Allergies: bismuth subsalicylate (Verified Allergy, Unknown, Hives, 12/03/20) Home Medication List Reviewed: Yes RLB-[id number]-[id number] Hx Patient Social History Employed/Student: retired Have you traveled recently?: No Alcohol Use?: No Past Medical History Discussed below Family Medical History Family Medical Hx Noncontributory Review of Systems-General Review of Systems Constitutional: see HPI, malaise EENTM: see HPI, nose congestion Respiratory: see HPI, cough, dyspnea on exertion; No hemoptysis; orthopnea; No phlegm; short of breath; No stridor, No wheezing, No other Cardiovascular: see HPI; No chest pain, No edema, No Hx of Intervention, No palpitations, No syncope, No vascular heart diseas, No other Gastrointestinal: see HPI; No abdominal pain; diarrhea (1-2 loose stools a day), loss of appetite, nausea; No vomiting Genitourinary: see HPI, decreased output; No dysuria Musculoskeletal: see HPI, other (generalized body aches) Skin: no symptoms reported, see HPI Psychiatric/Neurological: See HPI, Headache, Weakness (general) Reviewed Test Results Reviewed Test Results Lab Laboratory Tests Test 12/03/20 10:15 12/03/20 12:35 12/03/20 18:18 12/03/20 20:21 Range/Units Blood Gas Puncture Site RT RADIAL Blood Gas Patient Temperature 37.5 Arterial Blood pH 7.44 H 7.37-7.43 Arterial Blood Partial Pressure CO2 36 35-45 MMHG Arterial Blood Partial Pressure O2 89 79-93 MMHG Arterial Blood HCO3 25 23-27 MMOL/L Arterial Blood Total CO2 25.6 21.0-31.0 MMOL/L Arterial Blood Oxygen Saturation 97 94-100 % Arterial Blood Base Excess 0.6 -2.5-2.5 MMOL/L Juan F Test OK Blood Gas Ventilator Setting NO Blood Gas Inspired Oxygen 15 L Urine Color YELLOW Urine Clarity SLT CLOUDY Urine pH 5.5 5-9 Urine Specific Lynn <=1.005 1.016-1.022 Urine Protein TRACE H NEGATIVE Urine Glucose (UA) NEGATIVE NEGATIVE Urine Ketones 2+ H NEGATIVE Urine Nitrite NEGATIVE NEGATIVE Urine Bilirubin NEGATIVE NEGATIVE Urine Urobilinogen 0.2 < = 1.0 MG/DL Urine Leukocyte Esterase NEGATIVE NEGATIVE Urine RBC (Auto) TRACE H NEGATIVE Urine RBC NONE /HPF Urine WBC 0-2 /HPF Urine Squamous Epithelial Cells 0-2 /HPF Urine Crystals NONE /LPF Urine Bacteria NEGATIVE /HPF Urine Casts NONE /LPF Urine Mucus NEGATIVE /LPF Urine Culture Indicated NO Procalcitonin 0.24 H <0.10 NG/ML Glucometer 327 H 70-110 MG/DL Test 12/04/20 05:02 Range/Units White Blood Count 2.5 L 4.3-11.0 10^3/uL Red Blood Count 3.86 L 4.30-5.52 10^6/uL Hemoglobin 11.2 L 13.3-17.7 g/dL Hematocrit 33 L 40-54 % Mean Corpuscular Volume 87 80-99 fL Mean Corpuscular Hemoglobin 29 25-34 pg Mean Corpuscular Hemoglobin Concent 34 32-36 g/dL Red Cell Distribution Width 14.4 10.0-14.5 % Platelet Count 104 L 130-400 10^3/uL Mean Platelet Volume 11.1 9.0-12.2 fL Immature Granulocyte % (Auto) 0 % Neutrophils (%) (Auto) 81 H 42-75 % Lymphocytes (%) (Auto) 13 12-44 % Monocytes (%) (Auto) 5 0-12 % Eosinophils (%) (Auto) 0 0-10 % Basophils (%) (Auto) 0 0-10 % Neutrophils # (Auto) 2.0 1.8-7.8 10^3/uL Lymphocytes # (Auto) 0.3 L 1.0-4.0 10^3/uL Monocytes # (Auto) 0.1 0.0-1.0 10^3/uL Eosinophils # (Auto) 0.0 0.0-0.3 10^3/uL Basophils # (Auto) 0.0 0.0-0.1 10^3/uL Immature Granulocyte # (Auto) 0.0 0.0-0.1 10^3/uL Percent Immature Platelet Fraction 6.9 0.0-7.6 % Sodium Level 134 L 135-145 MMOL/L Potassium Level 4.6 3.6-5.0 MMOL/L Chloride Level 102 98-107 MMOL/L Carbon Dioxide Level 20 L 21-32 MMOL/L Anion Gap 12 5-14 MMOL/L Blood Urea Nitrogen 26 H 7-18 MG/DL Creatinine 1.16 0.60-1.30 MG/DL Estimat Glomerular Filtration Rate 61 BUN/Creatinine Ratio 22 Glucose Level 307 H 70-105 MG/DL Calcium Level 8.3 L 8.5-10.1 MG/DL Corrected Calcium 9.0 8.5-10.1 MG/DL Total Bilirubin 0.6 0.1-1.0 MG/DL Aspartate Amino Transf (AST/SGOT) 38 H 5-34 U/L Alanine Aminotransferase (ALT/SGPT) 24 0-55 U/L Alkaline Phosphatase 38 L 40-136 U/L Total Protein 6.2 L 6.4-8.2 GM/DL Albumin 3.1 L 3.2-4.5 GM/DL Physical Exam Physical Exam Vital Signs Vital Signs - First Documented 12/03/20 12/03/20 09:30 16:58 Temp 37.5 Pulse 54 Resp 35 B/P (MAP) 124/63 (83) Pulse Ox 93 O2 Delivery OxyMask O2 Flow Rate 15.00 FiO2 100 Capillary Refill : Less Than 3 Seconds Height, Weight, BMI Height: '" Weight: lbs. oz. kg; 28.69 BMI Method: General Appearance: Mild Distress, Other (initially more confused and having difficulty answering questions, but improved as he was on supplemental oxygen.) HEENT: PERRL/EOMI; No Moist Mucous Membranes (slightly dry mucous membranes) Neck: Full Range of Motion, Normal Inspection, Non Tender, Supple Respiratory: No Accessory Muscle Use, Crackles, Decreased Breath Sounds, Respiratory Distress (increased work of breathing and tachypnea), Rhonci (throughout, improved with cough), Other (tender to chest wall) Cardiovascular: Regular Rate, Rhythm, Normal Peripheral Pulses Gastrointestinal: Normal Bowel Sounds, No Pulsatile Mass, Non Tender, Soft Rectal: Deferred Back: No CVA Tenderness, No Vertebral Tenderness Extremity: Normal Capillary Refill, Normal Inspection, No Pedal Edema Neurologic/Psychiatric: Alert, Oriented x3 (initially confused on arrival but after being on supplemental oxygen answered questions appropriately), No Motor/Sensory Deficits, media developer II-XII Norm as Tested Skin: Normal Color, Warm/Dry A/P-Cardiology Admission Diagnosis Acute respiratory failure COVID-19 pneumonia Sinus bradycardia Diabetes mellitus Assessment/Plan Acute respiratory failure, COVID-19 pneumonia, ARDS, currently on Vapotherm with 90%. Managed by primary team Shortness of breath, cough secondary to pneumonia, receiving Decadron Sinus bradycardia, asymptomatic, probably due to hypoxemia in addition to Decadron. Blood pressure appears to be stable. Continue to monitor, I do not recommend a pacemaker at this time. Hypertension, blood pressure appears to be stable. Continue to monitor blood pressure closely Diabetes mellitus, elevated blood glucose level due to steroids injection. Maintained on sliding scale insulin Obesity, BMI 31. Significant hearing loss. Using hearing aid at home. JORY ESTRELLA MD Dec 04, 2020 09:57
[2020-12-04] MEDS ORDERED: guaiFENesin (MUCINEX) 600 MG TAB PO ONE (12:00)
--- NOTE | 2020-12-04 12:03 | Progress Note - Hospitalist ---
Subjective HPI/CC On Admission Date Seen by Provider: Dec 04, 2020 Time Seen by Provider: 10:10 Pravin Obrien Jr is a 80-year-old male with past medical history of hypertension, type 2 diabetes mellitus, who presented with shortness of breath. He was diagnosed with Covid yesterday. He is unvaccinated. He reports that he thought he was immune to it. He reports that he has been sick for nearly 2 weeks. He came in because of shortness of breath. He is also had a very bad cough. He has not had a very good appetite and things have not smelled or tasted right. He denies chest pain. He denies fevers and chills. He denies nausea and vomiting. He denies abdominal pain and diarrhea. He did see a doctor but was not prescribed any medications. He has been taking Advil and Sudafed. Subjective/Events-last exam He continues to have a bad cough. He is bringing up phlegm. He is short of breath. He is feeling hungry. He has been able to drink. Focused Exam Lactate Level 12/03/20 09:45: Lactic Acid Level 1.42 Objective Exam Vital Signs Vital Signs Date Time Temp Pulse Resp B/P (MAP) Pulse Ox O2 Delivery O2 Flow Rate FiO2 12/04/20 11:15 92 Vapotherm 40.00 90 12/04/20 08:21 35.4 41 22 103/43 (63) Capillary Refill : Less Than 3 Seconds General Appearance: WD/WN, Mild Distress (tachypnea) Respiratory: Lungs Clear, Normal Breath Sounds, No Respiratory Distress Cardiovascular: No Edema, No Murmur, Bradycardia Gastrointestinal: Normal Bowel Sounds, Non Tender, Soft Extremity: Normal Inspection, Non Tender, No Pedal Edema Neurologic/Psychiatric: Alert, Oriented x3, No Motor/Sensory Deficits, Normal Mood/Affect Skin: Normal Color, Warm/Dry Results/Procedures Lab Laboratory Tests 12/04/20 05:02 Patient resulted labs reviewed. Imaging: Reviewed Imaging Report Assessment/Plan Assessment and Plan Assess & Plan/Chief Complaint Acute respiratory failure due to COVID-19 Lymphopenia associated with COVID-19 Elevated D-dimer COVID+ outside facility 12/02 Chest imaging with diffuse infiltrates D-dimer mildly elevated CT negative for pulmonary embolism Prophylactic Lovenox Procalcitonin within normal limits, antibiotics not started Continue Decadron s/p Actemra 12/03 Requiring Vapotherm, increasing requirements Incentive spirometry Unable to tolerate proning MAT protocol Bradycardia Heart rate dropping into the 30s Asymptomatic Cardiology consulted Likely due to viral infection and steroids Hypertension Hold home meds Currently normotensive Type 2 diabetes mellitus Steroid-induced hyperglycemia Continue Levemir Sliding scale insulin DVT prophylaxis: Lovenox Diagnosis/Problems Diagnosis/Problems (1) Acute respiratory failure due to COVID-19 Status: Acute (2) Lymphopenia associated with COVID-19 Status: Acute (3) Hypertension Status: Chronic (4) Type 2 diabetes mellitus Status: Chronic (5) Bradycardia Status: Acute (6) Elevated d-dimer Status: Acute (7) Steroid-induced hyperglycemia MIRELLA TINAJERO MD Dec 04, 2020 12:03
[2020-12-04] MEDS: ENOXAPARIN 40 MG/0.4 ML (LOVENOX) SYR SC SCH (18:09)
[2020-12-04] MEDS: guaiFENesin (MUCINEX) 600 MG TAB PO SCH (20:09)
[2020-12-04] MEDS: ONDANSETRON 4 MG (ZOFRAN) ORAL DISSOLVE TAB PO PRN (22:58)
[2020-12-05] VITALS (13 sets, daily range): BP systolic 113–144; BP diastolic 59–74
[2020-12-05] MEDS ORDERED: PROCHLORPERAZINE 10 MG/2ML INJ (COMPAZINE) IV PRN (01:00)
[2020-12-05] MEDS: RT-ALBUTEROL HFA 8.5 GM INHALER IH SCH ×2 (02:03→07:00)
[2020-12-05] MEDS: ONDANSETRON 4 MG (ZOFRAN) ORAL DISSOLVE TAB PO PRN (04:18)
[2020-12-05] MEDS: PROCHLORPERAZINE 10 MG/2ML INJ (COMPAZINE) IV PRN ×2 (04:54→09:02)
[2020-12-05] MEDS: LACTATED RINGERS 1,000 ML IV SCH (05:07)
[2020-12-05 06:00] LABS: BASOPHILS % (AUTO) 0 % (0-10); EOSINOPHILS % (AUTO) 0 % (0-10); HEMATOCRIT 37 % (40-54); HEMOGLOBIN 12.5 g/dL (13.3-17.7); LYMPHOCYTES # (AUTO) 0.4 10^3/uL (1.0-4.0); LYMPHOCYTES % (AUTO) 4 % (12-44); MEAN CORPUSCULAR HEMOGLOBIN 30 pg (25-34); MEAN CORPUSCULAR HGB CONC 34 g/dL (32-36); MEAN CORPUSCULAR VOLUME 87 fL (80-99); MEAN PLATELET VOLUME 11.1 fL (9.0-12.2); MONOCYTES # (AUTO) 0.2 10^3/uL (0.0-1.0); MONOCYTES % (AUTO) 2 % (0-12); NEUTROPHILS # (AUTO) 11.1 10^3/uL (1.8-7.8); NEUTROPHILS % (AUTO) 94 % (42-75); PLATELET COUNT 135 10^3/uL (130-400); WHITE BLOOD COUNT 11.9 10^3/uL (4.3-11.0)
[2020-12-05] MEDS ORDERED: KCL 20 MEQ TAB (K-DUR) PO SCH (06:00)
[2020-12-05] MEDS ORDERED: POTASSIUM CL 10MEQ/50ML IVPB 50 ML IV SCH (06:00)
[2020-12-05] MEDS ORDERED: MAGNESIUM 1 GM/100 ML IVPB 100 ML IV SCH (06:00)
[2020-12-05 06:10] LABS: ALBUMIN 3.1 GM/DL (3.2-4.5); POTASSIUM 4.3 MMOL/L (3.6-5.0)
[2020-12-05 06:11] LABS: CALCIUM 8.4 MG/DL (8.5-10.1)
[2020-12-05 06:12] LABS: TOTAL PROTEIN 6.1 GM/DL (6.4-8.2)
[2020-12-05 06:14] LABS: BILIRUBIN,TOTAL 0.9 MG/DL (0.1-1.0)
[2020-12-05 06:16] LABS: CREATININE SERUM 1.08 MG/DL (0.60-1.30)
[2020-12-05] MEDS: inSUlin ASPART (NovoLOG) 1 UNIT/0.01 ML (CHARGE PER UNIT) SC SCH ×2 (06:16→07:01)
[2020-12-05] MEDS: dexAMETHasone 6 MG TAB (DECADRON) PO SCH (07:51)
[2020-12-05] MEDS: guaiFENesin (MUCINEX) 600 MG TAB PO SCH (07:51)
[2020-12-05] MEDS ORDERED: LORazepam INJ 2 MG/ML (ATIVAN) VIAL IVP ONE (08:00)
[2020-12-05] MEDS ORDERED: ONDANSETRON 4 MG/2 ML (SDV) Z0FRAN IVP ONE (08:00)
--- NOTE | 2020-12-05 08:03 | Tele-ICU Progress Note ---
Progress Note video rounds completed 80 y/o with Tonya DASILVA Patient has requested to be DNR Curretly on vapotherm at [address] 100% FIO2 Still hypoxic and SOB Severe nausea on zofran and compazine, additional dose of zofran given this am PLAN: continue maximal treatment and maximal comfort care, but DNI Focused Exam Lactate Level 12/03/20 09:45: Lactic Acid Level 1.42 Height, Weight, BMI Height: '" Weight: lbs. oz. kg; 28.69 BMI Method: Laboratory Tests 12/05/20 05:30 DORA LEON MD Dec 05, 2020 08:03
--- NOTE | 2020-12-05 10:04 | Cardiology Progress Note ---
Subjective Date Seen by Provider: Dec 05, 2020 Time Seen by Provider: 10:02 Subjective/Events-last exam Patient was transferred to intensive care unit due to progressive respiratory failure, maintained on Vapotherm Review of Systems General: Fatigue Pulmonary: Dyspnea, Cough Focused Exam Lactate Level 12/03/20 09:45: Lactic Acid Level 1.42 Objective-Cardiology Exam Last Set of Vital Signs Vital Signs 12/05/20 12/05/20 12/05/20 12/05/20 07:54 08:00 08:22 09:00 Temp 36.1 Pulse 53 Resp 18 B/P (MAP) 142/64 (90) Pulse Ox 87 O2 Delivery NIV Bilevel O2 Flow Rate 95.00 FiO2 100 I&O Intake and Output 12/05/20 00:00 Intake Total 2700 ml Output Total 1075 ml Balance 1625 ml Intake Oral 600 ml IV Total 2100 ml Output Urine Total 1075 ml # Voids 1 General: Alert, Cooperative HEENT: Atraumatic Lungs: Other (Maintained on Vapotherm) Heart: Other (Bradycardic) Results Lab Laboratory Tests 12/05/20 05:30 A/P-Cardiology Admission Diagnosis Acute respiratory failure COVID-19 pneumonia Sinus bradycardia Diabetes mellitus Assessment/Plan Acute respiratory failure, COVID-19 pneumonia, ARDS, currently on Vapotherm with 100%. Transfer to intensive care unit due to progressive respiratory failure. Managed by primary team Shortness of breath, cough secondary to pneumonia, receiving Decadron Sinus bradycardia, asymptomatic, probably due to hypoxemia in addition to Decadron. Blood pressure appears to be stable. Continue to monitor, I do not recommend a pacemaker at this time. Hypertension, blood pressure appears to be stable. Continue to monitor blood pressure closely Diabetes mellitus, elevated blood glucose level due to steroids injection. Maintained on sliding scale insulin Obesity, BMI 31. Significant hearing loss. Using hearing aid at home. JORY ESTRELLA MD Dec 05, 2020 10:04
--- NOTE | 2020-12-05 10:28 | Tele-ICU Progress Note ---
Progress Note video rounds completed 80 y/o with severe Covid PNA and hypoxemix Has requested DNR On vapotherm, HF O2 and intermittent BIPAP O sat in the 80s Currently active discussion on intubation status Focused Exam Lactate Level 12/03/20 09:45: Lactic Acid Level 1.42 Height, Weight, BMI Height: '" Weight: lbs. oz. kg; 28.69 BMI Method: Results/Procedures Lab Laboratory Tests 12/04/20 05:02 12/05/20 05:30 DORA LEON MD Dec 05, 2020 10:28
[2020-12-05] MEDS ORDERED: ACETAMINOPHEN 650 MG SUPP (TYLENOL) PR PRN (10:45)
[2020-12-05] MEDS ORDERED: LORazepam INJ 2 MG/ML (ATIVAN) VIAL IVP PRN (10:45)
[2020-12-05] MEDS ORDERED: BISACODYL 10 MG SUPP (DULCOLAX) PR PRN (10:45)
[2020-12-05] MEDS ORDERED: PROMETHAZINE INJ 25 MG/ML (PHENERGAN) AMP IVP PRN (10:45)
[2020-12-05] MEDS ORDERED: GLYCOPYRROLATE 0.2 MG/ML (ROBINUL) 2 ML VIAL IV PRN (10:45)
[2020-12-05] MEDS ORDERED: RT-ALBUTEROL/IPRATROPIUM 3 ML (DUONEB) VIAL INH PRN (10:45)
[2020-12-05] MEDS ORDERED: ONDANSETRON 4 MG/2 ML (SDV) Z0FRAN IVP PRN (10:45)
[2020-12-05] MEDS ORDERED: ARTIFICAL TEARS 0.4 ML UNIT DOSE (REFRESH PLUS) OU PRN (10:45)
[2020-12-05] MEDS ORDERED: SALIVA STIMULANT MOUTH SPRAY (BIOTENE) 1.5 OZ MM PRN (10:45)
[2020-12-05] MEDS: morphine INJ 4 MG/ML 1 ML (VIAL/SYRINGE) IV PRN ×2 (11:02→12:35)
[2020-12-05] MEDS ORDERED: DexMEDEtomidine 250 ML DRIP 250 ML IV ONE (11:56)
[2020-12-05] MEDS ORDERED: DexMEDEtomidine 250 ML DRIP 250 ML IV SCH (12:00)
--- NOTE | 2020-12-05 12:02 | Tele-ICU Progress Note ---
Progress Note patient made comfort care only Struggling with hypoxexia Will start precedex drip for sedation and comfort Focused Exam Lactate Level 12/03/20 09:45: Lactic Acid Level 1.42 Height, Weight, BMI Height: '" Weight: lbs. oz. kg; 28.69 BMI Method: DORA LEON MD Dec 05, 2020 12:02
== END 2020-12-05 13:45 | disposition expired | DRG 208 ==
LOC: ER FS 09:26 → CSD 11:42 → ICU 12-04 18:03
PROVIDERS: ADMIT Internal Medicine; ATTEND Internal Medicine
PROC: 5A1945Z Respiratory Ventilation, 24-96 Consecutive Hours (ICD-10-PCS; principal; 2020-12-03)
DX: U07.1 COVID-19 (principal); J12.82 Pneumonia due to coronavirus disease 2019; J80 Acute respiratory distress syndrome; D72.810 Lymphocytopenia; I10 Essential (primary) hypertension; Z51.5 Encounter for palliative care; Z66 Do not resuscitate; E11.65 Type 2 diabetes mellitus with hyperglycemia; R00.1 Bradycardia, unspecified; T38.0X5A Adverse effect of glucocorticoids and synthetic analogues, initial encounter; H91.90 Unspecified hearing loss, unspecified ear; E66.9 Obesity, unspecified; Z73.0 Burn-out; Z68.31 Body mass index [BMI] 31.0-31.9, adult; Z79.4 Long term (current) use of insulin; Z85.820 Personal history of malignant melanoma of skin
CPT/HCPCS: 36415; 71045; 71275; 80053; 81000; 82805; 82947; 83605; 83690; 83735; 83880; 84145; 84484; 85007; 85025; 85027; 85379; 85610; 85730; 86141; 87040; 93005; 93041; 94640; 94660; 94760